=== PATIENT | female | born 1995 | race Caucasian/White ===

== ENCOUNTER 2017-01-08 06:52 | Emergency (ER) | payer OTHER ==
[2017-01-08 06:59] VITALS: BP 111/81; PULSE 71; RESP 18; TEMP 98.6; O2SAT 97
[2017-01-08] MEDS ORDERED: IBUPROFEN 600 MG TAB PO ONE (07:24)
--- NOTE | 2017-01-08 07:24 | EDPHY ---
H & P Stated Complaint: upper / mid back pain, 3-4 days, no trauma, cough x1 week HPI/ROS: CHIEF COMPLAINT: Cough, back pain HISTORY OF PRESENT ILLNESS: The patient is a 21 y/o female, with a history of asthma, arriving with her friend complaining of worsening back pain for the last few days. She quit smoking one week ago and subsequently began coughing occasionally. Her cough is sometimes productive. She noticed back pain upon waking about 4 days ago and initially attributed it to a sore back. She cannot identify preceding trauma or other event. She describes midthoracic pain and pressure that is aggravated by breathing and moving. She took an Aleve for pain last night that moderately improved her symptoms. She denies fever, chills, dysuria, vomiting, weakness, paresthesias. She also notes a history of prior UTIs. REVIEW OF SYSTEMS: Constitutional: No fever, no chills Eyes: No visual changes ENT: No sore throat Respiratory: +cough, no shortness of breath Cardiac: No chest pain Gastrointestinal: No nausea, no vomiting, no abdominal pain Genitourinary: No hematuria, no dysuria Musculoskeletal: No leg pain or swelling Skin: No rash Neurological: No headache, no numbness, no weakness Psychiatric: No depression - Personal History LMP (Females 10-55): 1-7 Days Ago Current Tetanus Diphtheria and Acellular Pertussis (TDAP): Unsure - Medical/Surgical History PMH: PMH includes: 1. Depression 2. Asthma Prior medical records reviewed including ED visit 08/10/15 for M1 hold. Hx Asthma: Yes Hx Chronic Respiratory Disease: No Hx Diabetes: No Hx Cardiac Disease: No Hx Renal Disease: No Hx Cirrhosis: No Hx Alcoholism: No Hx HIV/AIDS: No Hx Splenectomy or Spleen Trauma: No Other PMH: Depression, Asthma - Social History Smoking Status: Former smoker Additional Social History: Quit smoking one week ago. Friend at bedside. Alcohol use. - Physical Exam Exam: General Appearance: Alert, sightly tearful Eyes: Pupils equal and round, no conjunctival pallor or injection ENT, Mouth: Mucous membranes moist Neck: Normal inspection Respiratory: Lungs are clear to auscultation Cardiovascular: Regular rate and rhythm Gastrointestinal: Abdomen is soft with LUQ tenderness Back: right periscapular tenderness, pain aggravated with ROM of right shoulder Neurological: A&O, nonfocal, normal gait Skin: Warm and dry, no rash Extremities: Nontender, no pedal edema Psychiatric: Mood and affect normal Constitutional: Initial Vital Signs Temperature (C) 37 C 01/08/17 06:56 Heart Rate 71 01/08/17 06:56 Respiratory Rate 18 01/08/17 06:56 Blood Pressure 111/81 H 01/08/17 06:56 O2 Sat (%) 97 01/08/17 06:56 O2 Delivery Mode Room Air Allergies/Adverse Reactions: tobramycin Allergy (Verified 08/10/15 06:25) Home Medications: Medication Instructions Recorded Proair Hfa Icu (RX) 08/10/15 Medical Decision Making - Diagnostics Imaging Results: CXR: NAD Imaging: I viewed and interpreted images myself ED Course/Re-evaluation: This is a healthy 21 y/o female who presents with a 4-day history of worsening midthoracic back pain and a 1-week history of a cough. On exam, she has right periscapular tenderness as well as LUQ tenderness. She is afebrile and denies any urinary symptoms though she does report a history of UTIs. Plan for urine dip, chest x-ray, and symptom management. 600mg PO ibuprofen administered for pain. Reassessed patient and discussed work up. Her chest x-ray and urine dip are negative. She feels improved after ibuprofen administration. Her abdomen is benign. She will be discharged with bronchitis and musculoskeletal back pain instructions. I've recommended ibuprofen for pain. Specific return precautions given. She is comfortable with this plan. Differential Diagnosis: includes though not limited to PE, pneumonia, PTX - Data Points Medications Given: Discontinued Medications Ibuprofen (Motrin) 600 mg PO EDNOW ONE Stop: 01/08/17 07:25 Last Admin: 01/08/17 07:34 Dose: 600 mg Departure - Departure Disposition: Home, Routine, Self-Care Clinical Impression: Bronchitis Back pain Qualifiers: Back pain location: thoracic back pain Chronicity: acute Back pain laterality: right Qualified Code(s): M54.6 - Pain in thoracic spine Condition: Fair Instructions: Acute Bronchitis (ED), Back Pain (ED) Additional Instructions: 1. Take 600mg ibuprofen every 6-8 hours for pain for the next few days. 2. Follow up with your primary care provider for unimproved symptoms over the next 3-4 days. 3. Return to the ED for significantly worsening cough, fever, shortness of breath, or other worsening of condition. Referrals: NONE *PRIMARY CARE P,. [Primary Care Provider] - As per Instructions [facility] [Clinic] - As per Instructions Stand Alone Forms: School Excuse Report Scribed for: Kimmie Rey Report Scribed by: Anju Srinivasan Date of Report: 01/08/17 Time of Report: 07:15 Physician Review and Approval Statement: 01/08/17 07:15 Portions of this note were transcribed by a pesticide use medical coordinator. I personally performed a history, physical exam, medical decision making, and confirmed accuracy of information the transcribed note.
== END 2017-01-08 08:07 | disposition home or self-care (01) ==
DX: J40 Bronchitis, not specified as acute or chronic (principal); M54.6 Pain in thoracic spine; Z87.891 Personal history of nicotine dependence